=== PATIENT | male | born 1940 | race African-American/Black ===

== ENCOUNTER 2018-10-21 10:20 | Observation (INO) | payer MEDICARE, OTHER ==
[~2018-10-21] VITALS: Ht 193 cm; Wt 99.8 kg
[2018-10-21] VITALS (9 sets, daily range): BP systolic 119–159; BP diastolic 73–98
[~2018-10-21 10:20] MED LIST: ASPI-630 PO; ATOR20TA58 PO; BACITRACIN 50,000 UNIT in IV NORMAL SALINE 1000ML BAG 1,000 ML IRR ONE; CHOL10003 PO; DABI150C PO; DILT360C PO; FLUT1DIS3 IH; FURO-68 PO; HYDROmorphone 2 MG/ML VIAL IV PRN; LIDOCAINE 1% PF 2 ML VIAL. ID PRN; METO25TA4 PO; MORPHINE SULFATE 2 MG/ML VIAL. IV PRN; MULT-690 PO; OMEG1CAP27 PO; ONDANSETRON PF 4 MG/2 ML VIAL. IV PRN; PROCHLORPERAZINE 10 MG/2 ML VIAL. IV PRN; TAMS0.4C2 PO; TRAM50TA PO; fentaNYL PF VIAL 100 MCG/2 ML VIAL IV PRN
[2018-10-21] MEDS ORDERED: PROPOFOL 20 ML IV ONE (10:24)
[2018-10-21] MEDS ORDERED: LIDOCAINE 2% PF 5 ML VIAL. ONE (10:24)
[2018-10-21] MEDS ORDERED: fentaNYL PF VIAL 100 MCG/2 ML VIAL ONE (10:25)
[2018-10-21] MEDS ORDERED: ROCURONIUM 50 MG/5 ML VIAL. ONE (10:25)
[2018-10-21] MEDS ORDERED: BUPIVAC MPF-EPI 0.5%-1:200000 30 ML VIAL. ONE (10:54)
[2018-10-21] MEDS: IV RINGERS,LACTATED 1000ML 1,000 ML IV SCH ×2 (11:01→14:10)
[2018-10-21] MEDS ORDERED: SUCCINYLCHOLINE 200 MG/10 ML VIAL. ONE (11:42)
--- NOTE | 2018-10-21 12:15 | PDOC1 ---
History and Physical Date of Admission Date of Admission DATE: 10/21/18 TIME: 12:11 Identification/Chief Complaint Chief Complaint Painful right groin bulge Source Source: Patient History of Present Illness History of Present Illness 77-year-old male who had a bilateral inguinal hernia repair in 1993 states that he is having pain on the right side and there is a bulge similar to the one he had prior to prepare denies any nausea vomiting fevers or chills. He has been to see his composite engineer in the cardiac clearance for this procedure of inguinal hernia repair Past Medical History Cardiovascular: AFIB, CHF, HTN Pulmonary: COPD, Pulmonary embolus CENTRAL NERVOUS SYSTEM: CVA GI: No pertinent hx Heme/Onc: Other (DVT) Hepatobiliary: No pertinent hx Psych: No pertinent hx Rheumatologic: No pertinent hx Infectious disease: No pertinent hx ENT: No pertinent hx Renal/: Benign prostatic enlarg., Other Endocrine: No pertinent hx Dermatology: No pertinent hx Past Surgical History Past Surgical History: Hernia Repair, Other (diskectomy) Family History Family History: No Significant Social History Smoke: No ALCOHOL: none Drugs: None Current Medications Current Medications Current Medications Bacitracin 29297 unit/Sodium Chloride 1,000 ml @ 1,000 mls/hr 1X ONCE IRR ; Start 10/20/18 at 06:00; Stop 10/20/18 at 06:59; Status UNV Cefazolin Sodium/ Dextrose 50 ml @ 100 mls/hr 1X PREOP PRN IV PRIOR TO PROCEDURE; Start 10/20/18 at 06:00; Status UNV Ondansetron HCl (Zofran) 4 mg PRN Q6HRS PRN IV NAUSEA/VOMITING; Start 10/21/18 at 07:00; Stop 10/22/18 at 06:59 Fentanyl Citrate (Fentanyl 2ml Vial) 25 mcg PRN Q5MIN PRN IV MILD PAIN; Start 10/21/18 at 07:00; Stop 10/22/18 at 06:59 Fentanyl Citrate (Fentanyl 2ml Vial) 50 mcg PRN Q5MIN PRN IV MODERATE TO SEVERE PAIN; Start 10/21/18 at 07:00; Stop 10/22/18 at 06:59 Morphine Sulfate (Morphine Sulfate) 1 mg PRN Q10MIN PRN IV SEVERE PAIN; Start 10/21/18 at 07:00; Stop 10/22/18 at 06:59 Ringer's Solution 1,000 ml @ 30 mls/hr Q24H IV Last administered on 10/21/18at 11:01; Start 10/21/18 at 07:00; Stop 10/21/18 at 18:59 Lidocaine HCl (Xylocaine-Mpf 1% 2ml Vial) 2 ml PRN 1X PRN ID PRIOR TO IV START ; Start 10/21/18 at 07:00; Stop 10/22/18 at 06:59 Hydromorphone HCl (Dilaudid) 0.5 mg PRN Q10MIN PRN IV SEV PAIN, Second choice; Start 10/21/18 at 07:00; Stop 10/22/18 at 06:59 Prochlorperazine Edisylate (Compazine) 5 mg PACU PRN PRN IV NAUSEA, MRX1; Start 10/21/18 at 07:00; Stop 10/22/18 at 06:59 Cefazolin Sodium/ Dextrose 50 ml @ 100 mls/hr 1X PREOP PRN IV PRIOR TO PROCEDURE; Start 10/21/18 at 06:00; Stop 10/21/18 at 18:00 Propofol 20 ml @ As Directed STK-MED ONCE IV ; Start 10/21/18 at 10:24; Stop 07/30 at 10:25; Status DC Lidocaine HCl (Lidocaine Pf 2% Vial) 5 ml STK-MED ONCE .ROUTE ; Start 10/21/18 at 10:24; Stop 10/21/18 at 10:25; Status DC Fentanyl Citrate (Fentanyl 2ml Vial) 100 mcg STK-MED ONCE .ROUTE ; Start at 10:25; Stop 10/21/18 at 10:26; Status DC Rocuronium [place] (Zemuron) 50 mg STK-MED ONCE .ROUTE ; Start 10/21/18 at 10:25 ; Stop 10/21/18 at 10:26; Status DC Succinylcholine Chloride (Anectine) 200 mg STK-MED ONCE .ROUTE ; Start 10/21/18 at 11:42; Stop 10/21/18 at 11:43; Status DC Bupivacaine HCl/ Epinephrine Bitart (Sensorcain-Mpf Epi 0.5%-1:821119) 30 ml STK -MED ONCE .ROUTE ; Start 10/21/18 at 10:54; Stop 10/21/18 at 11:54; Status DC Active Scripts Active Reported Tamsulosin Hcl 0.4 Mg Cap.er.24h 1 Cap PO QHS Aspirin 81 Mg Tab.chew 1 Tab PO DAILY Atorvastatin Calcium 20 Mg Tablet 0.5 Tab PO DAILY Fish Oil 1,000 Mg Softgel ([place]-3 Fatty Acids/Fish Oil) 1 Each Capsule 1 Each PO DAILY Pradaxa (Dabigatran Etexilate Mesylate) 150 Mg Capsule 1 Cap PO BID Lasix (Furosemide) 40 Mg Tablet 1 Tab PO DAILY Vitamin D3 (Cholecalciferol (Vitamin D3)) 1,000 Unit Tablet 1 Tab PO DAILY Cardizem Cd (Diltiazem Hcl) 360 Mg Cap.er.24h 1 Cap PO QHS Tramadol Hcl 50 Mg Tablet 50 Mg PO PRN TID PRN Metoprolol Tartrate 25 Mg Tablet 0-5 Tab PO BID Advair 250-50 Diskus (Fluticasone/Salmeterol) 1 Each Disk.w.dev 1 Puff IH BID Centrum Silver Men Tablet (Multivit-Min/FA/Lycopen/Lutein) 1 Each Tablet 1 Each PO DAILY Allergies Allergies: Coded Allergies: FRANKIE Inhibitors (Verified Allergy, Severe, Swelling, 10/21/18) ROS Genitourinary: YES Pain Physical Exam General: Alert, Oriented X3, Cooperative, No acute distress HEENT: Atraumatic, PERRLA, EOMI Lungs: Clear to auscultation, Normal air movement Heart: RRR, no murmurs Abdomen: Normal bowel sounds, Soft, No tenderness Male Genitals Exam: other (right inguinal hernia with tenderness) Rectal Exam: not examined Extremities: No edema Neuro: Normal speech Psych/Mental Status: Mental status NL Vitals Vitals Vital Signs Date Time Temp Pulse Resp B/P (MAP) Pulse Ox O2 Delivery O2 Flow Rate FiO2 10/21/18 10:50 97.7 93 153/78 95 97.7 10/21/18 10:45 20 VTE Prophylaxis Ordered VTE Prophylaxis Devices: Yes VTE Pharmacological Prophylaxi: Contraindicated Assessment/Plan Assessment/Plan Plan robotic-assisted laparoscopic repair of recurrent right inguinal hernia RONNIE BURTON MD Oct 21, 2018 12:15
[2018-10-21] MEDS ORDERED: ONDANSETRON PF 4 MG/2 ML VIAL. ONE (12:30)
[2018-10-21] MEDS ORDERED: DEXAMETHASONE SOD PHOS 20 MG/5 ML VIAL. ONE (12:30)
[2018-10-21] MEDS ORDERED: DESFLURANE 61 TO 120 MINUTES IH ONE (12:35)
[2018-10-21] MEDS ORDERED: NEOSTIGMINE 10 MG/10 ML VIAL. ONE (13:02)
[2018-10-21] MEDS ORDERED: GLYCOPYRROLATE 1 MG/5 ML VIAL. ONE (13:03)
--- NOTE | 2018-10-21 13:37 | PDOC4 ---
Operative Note Operative Note Date: 10/21/2018 Preoperative diagnosis: Recurrent right inguinal hernia Postoperative diagnosis: Same Procedure: Robotic-assisted laparoscopic right inguinal hernia repair with mesh Surgeon: Mani Specimen: None Dictation: Patient is a 77-year-old male who had bilateral inguinal hernia repairs done in 1993 most recently his been complaining of a painful bulge in the right groin consistent with a hernia. Procedure of robotic-assisted laparoscopic right inguinal hernia repair with mesh was explained to the patient detail all risks benefits were also discussed including bleeding infection injury to intra-abdominal contents possibly necessitating further open operations. The patient seemed to understand and gave both verbal and written consent to have the procedure performed. Patient was taken to the operating room placed in supine position general anesthesia was initiated once patient was sleep and intubated is placed in low lithotomy positioning and his abdomen was prepped and draped usual sterile fashion using ChloraPrep. An area just below the umbilicus was injected with quarter percent Marcaine with epinephrine incision was made Lembert blade scalpel and Veress needle was placed within the abdomen creating pneumoperitoneum once this was complete 8mm da Karan port was placed and a da Karan camera was placed within the abdomen which was inspected as noted he had a fairly large right inguinal hernia with incarcerated omentum left side appeared to be normal. 8mm da Karan port was placed in the right mid abdomen a second port was placed in the left mid abdomen and the da Karan robot was brought in and docked all port sites. Surgery went to the robotic console using a grasper and Endo Radha scissors the peritoneum over the right groin was incised a peroneal flap was propagated inferiorly and the hernia contents were reduced. A right sided Bard 3-D max mesh large was placed within the abdomen this was placed over the hernia defect and the peritoneum was then closed over the mesh with a running 20V lock suture. Suture is removed from the abdomen and pneumoperitoneum was reduced all ports removed. The port sites were then closed with 40 septic Monocryl Mastisol Steri-Strips and island dressings were applied. Patient was awakened and stated in the operating room taken to recovery in stable condition all sponge instrument needle counts listed as correct as reported blood loss 5 mL. RONNIE BURTON MD Oct 21, 2018 13:37
[2018-10-21] MEDS: IV DEXTROSE 5%-LACT RINGERS 1,000 ML IV SCH (13:38)
[2018-10-21] MEDS ORDERED: ONDANSETRON PF 4 MG/2 ML VIAL. IV PRN (13:45)
[2018-10-21] MEDS ORDERED: MORPHINE SULFATE 2 MG/ML VIAL. IV PRN (13:45)
[2018-10-21] MEDS ORDERED: oxyCODONE/APAP 5/325 1 TAB TABLET PO PRN ×2 (13:45)
[2018-10-21] MEDS ORDERED: 0.9 % SODIUM CHLORIDE 10 ML DISP.SYRIN. IV PRN (13:45)
[2018-10-21] MEDS ORDERED: traMADol 50 MG TABLET PO PRN (17:15)
[2018-10-21] MEDS: BUDESONIDE 0.5 MG/2 ML NEBU. NEB SCH (20:00)
[2018-10-21] MEDS: ALBUTEROL SULFATE 2.5 MG/3 ML NEBU. NEB SCH (20:00)
[2018-10-21] MEDS: METOPROLOL TART IMMED RELEASE 25 MG TABLET. PO SCH (21:00)
[2018-10-21] MEDS ORDERED: TAMSULOSIN 0.4 MG CAP.ER.24H. PO SCH (21:00)
[2018-10-21] MEDS ORDERED: NON FORMULARY ITEM (Fluticasone/Salmeterol (Advair 250-50 Diskus) 1 PUFF) IH SCH (21:00)
[2018-10-21] MEDS: DABIGATRAN ETEXILATE 150 MG CAPSULE. PO SCH (21:00)
[2018-10-22 03:00] VITALS: BP 140/74
[2018-10-22] MEDS: IV DEXTROSE 5%-LACT RINGERS 1,000 ML IV SCH (03:27)
[2018-10-22] MEDS: BUDESONIDE 0.5 MG/2 ML NEBU. NEB SCH (07:15)
[2018-10-22] MEDS: ALBUTEROL SULFATE 2.5 MG/3 ML NEBU. NEB SCH ×2 (07:15→11:08)
[2018-10-22 07:28] VITALS: BP 136/92
--- NOTE | 2018-10-22 08:34 | DISCH ---
DISCHARGE INSTRUCTIONS Condition on Discharge Condition on Discharge: Stable Activity After Discharge Activity Instructions for Disc: Avoid exertion Other activity instructions: no lifting more than 20 pounds for 2 weeks Diet after Discharge Diet after Discharge: Regular Wound Incision Care Other wound/incision instructi: mil casas starting today Contacting the DRShalini after DC Call your doctor for: If your condition worsens Follow-Up Follow up with: Mani in 2 weeks RONNIE BURTON MD Oct 22, 2018 08:34
[2018-10-22] MEDS ORDERED: ASPIRIN CHEWABLE 81 MG TABLET. PO SCH (09:00)
[2018-10-22] MEDS ORDERED: OMEGA-3 FATTY ACIDS/FISH OIL 1,000 MG CAPSULE. PO SCH (09:00)
[2018-10-22] MEDS ORDERED: ATORVASTATIN CALCIUM 20 MG TABLET PO SCH (09:00)
[2018-10-22] MEDS ORDERED: CHOLECALCIFEROL (VITAMIN D3) 1,000 UNIT TABLET PO SCH (09:00)
[2018-10-22] MEDS ORDERED: MULTIVITAMIN with MINERAL TABLET. PO SCH (09:00)
[2018-10-22] MEDS ORDERED: FUROSEMIDE 40 MG TABLET. PO SCH (09:00)
[2018-10-22] MEDS: METOPROLOL TART IMMED RELEASE 25 MG TABLET. PO SCH (09:03)
[2018-10-22] MEDS: DABIGATRAN ETEXILATE 150 MG CAPSULE. PO SCH (09:04)
[2018-10-22 11:02] VITALS: BP 161/73
--- NOTE | 2018-10-22 12:33 | NUR ---
Discharge instructions were given, follow up instructions, new prescriptions, and teaching. Dressing changed and assessed before discharge. Incisions look great, steri strips on and CDI. Pt is able to walk with walker which is his baseline. Iv removed. No tele. All belongings left with pt. Pt was escorted via wheelchair, with daughter, and hospital [facility]. Pt left at 1200. Will follow up with general surgery in 2 weeks.
--- NOTE | 2018-10-22 13:18 | NUR ---
SW following. Discussed with RN, pt is from home, daughter visits often. RN advised no SW needs and anticipates pt will discharge home today.
== END 2018-10-22 12:05 | disposition home or self-care (01) ==
LOC: SURG 10:20 → 4 NORTH 14:47
PROVIDERS: ADMIT Surgery; ATTEND Surgery
DX: K40.21 Bilateral inguinal hernia, without obstruction or gangrene, recurrent (principal); J44.9 Chronic obstructive pulmonary disease, unspecified; Z86.73 Personal history of transient ischemic attack (TIA), and cerebral infarction without residual deficits; Z86.711 Personal history of pulmonary embolism; I11.0 Hypertensive heart disease with heart failure; I50.9 Heart failure, unspecified
CPT/HCPCS: 49651; 94640; 94760; 96374; A7015; C1781; G0378; G0379; J0330; J0696; J1100; J2001; J2270; J2405; J2704; J2710; J3010; J3490; J7120; J7613; J7626

== ENCOUNTER → 2019-01-26 | Outpatient (CLI) | payer MEDICARE, OTHER ==
[~2019-01-26] MED LIST changes: -BACITRACIN 50,000 UNIT in IV NORMAL SALINE 1000ML BAG 1,000 ML IRR ONE; -HYDROmorphone 2 MG/ML VIAL IV PRN; -LIDOCAINE 1% PF 2 ML VIAL. ID PRN; -MORPHINE SULFATE 2 MG/ML VIAL. IV PRN; -ONDANSETRON PF 4 MG/2 ML VIAL. IV PRN; -PROCHLORPERAZINE 10 MG/2 ML VIAL. IV PRN; -fentaNYL PF VIAL 100 MCG/2 ML VIAL IV PRN
--- NOTE | 2019-01-26 17:34 | KCIC ---
LEFT LEG VENOUS DOPPLER STUDY: Clinical indications: Left leg swelling and venous insufficiency. History of IVC filter. Findings: Duplex sonography (including quinones scale evaluation and color flow and waveform spectral analysis) of the proximal aspect of the profunda femoral vein and the entire length of the common femoral and superficial femoral and popliteal veins and the tibioperoneal trunk of the left leg was performed. Normal compressibility, augmentation of color Doppler flow after calf compression, and respiratory variation of Doppler flow is seen. Thus, there are no sonographic findings of deep venous thrombosis within these veins. The calf veins are not well visualized due to patient's larger body habitus and calf edema. Impression: There are no sonographic findings of deep venous thrombosis within the veins discussed above of the left lower extremity. RIGHT LEG VENOUS DOPPLER STUDY: Clinical indications: Right leg swelling and venous insufficiency. History of IVC filter. Findings: Duplex sonography (including quinones scale evaluation and color flow and waveform spectral analysis) of the proximal aspect of the greater saphenous vein and proximal aspect of the profunda femoral vein and the entire length of the common femoral and superficial femoral and popliteal veins and the tibioperoneal trunk of the right leg was performed. Normal compressibility, augmentation of color Doppler flow after calf compression, and respiratory variation of Doppler flow is seen. Thus, there are no sonographic findings of deep venous thrombosis within these veins. The calf veins are not well visualized due to patient's larger body habitus and calf edema. Impression: There are no sonographic findings of deep venous thrombosis within the veins discussed above of the right lower extremity. Electronically signed by: Michele Ramon MD (01/26/2019 5:31 PM) [place] [id number]
== END | disposition home or self-care (01) ==
LOC: KCIC US 13:21
PROVIDERS: ATTEND Family Medicine
DX: I87.2 Venous insufficiency (chronic) (peripheral) (principal); M79.89 Other specified soft tissue disorders
CPT/HCPCS: 93970

== ENCOUNTER → 2019-05-19 | Outpatient (CLI) | payer MEDICARE, OTHER ==
--- NOTE | 2019-05-19 16:30 | RAD ---
Chest radiograph 05/19/2019 12:00 AM INDICATION: Shortness of breath COMPARISON: CT chest 05/03/2008 TECHNIQUE: Frontal and lateral views of the chest are provided. FINDINGS: The cardiomediastinal silhouette is borderline enlarged. There is strandy density at the left lung base which may represent subsegmental atelectasis. Mild interstitial prominence is noted. No significant pleural effusions or pneumothorax. No suspicious osseous abnormality is identified. IMPRESSION: Mild interstitial changes may reflect interstitial pneumonitis versus interstitial edema. There is subsegmental atelectasis versus developing infiltrate the left lung base. Electronically signed by: Keisha Gomez MD (05/19/2019 4:27 PM) [facility]
== END | disposition home or self-care (01) ==
LOC: RAD 12:49
PROVIDERS: ATTEND Family Medicine
DX: I51.7 Cardiomegaly (principal)
CPT/HCPCS: 71046

== ENCOUNTER → 2020-06-16 | Outpatient (CLI) | payer MEDICARE, OTHER ==
--- NOTE | 2020-06-16 13:10 | KCIC ---
EXAM: Head CT without contrast. HISTORY: Seizures. Spasms. TECHNIQUE: Computed tomographic images of the head were obtained without contrast. *One or more of the following individualized dose reduction techniques were utilized for this examination: 1. Automated exposure control. 2. Adjustment of the mA and/or kV according to patient size. 3. Use of iterative reconstruction technique. COMPARISON: None. FINDINGS: There is a hyperdense mass within the posterior right frontal lobe at the vertex measuring approximately 4.0 cm in maximum dimension and associated with surrounding hypodensity likely due to edema. This results in approximately 7 mm leftward shift of the superior falx. There is a similar-appearing hypodense mass with suspected internal calcification within the lateral right posterior fossa measuring approximately 2.5 cm with surrounding hypodensity likely due to edema. This appears to be extra-axial. There is encephalomalacia within the left occipital lobe likely due to sequela of chronic infarction. There is mild cerebral volume loss. The wywh-axphl-tgzad matter differentiation pattern is intact. The orbits and visualized paranasal sinuses mastoid air cells are unremarkable. There is no suspicious calvarial lesion. IMPRESSION: 1. 4.0 cm hyperdense mass within the posterior right frontal lobe at the vertex with surrounding edema 2.5 cm mass within the lateral right posterior fossa with suspected surrounding edema. These lesions can be better characterized with a brain MRI with and without contrast. 2. Encephalomalacia within the left occipital lobe likely due to chronic infarction. Findings were communicated to the Tank, the medical diagnostic radiographer for Dr. Hodge, at 1300 hours on 06/16/2020. Electronically signed by: Lisa Cordero MD (06/16/2020 1:07 PM) [id number]
== END ==
LOC: KCIC CT 12:20
PROVIDERS: ATTEND Family Medicine
DX: G40.A01 Absence epileptic syndrome, not intractable, with status epilepticus (principal)
CPT/HCPCS: 70450